=== PATIENT | male | born 1970 | race Caucasian/White ===

== ENCOUNTER 2017-12-12 11:05 | Outpatient (CLI) | payer OTHER ==
--- NOTE | 2017-12-12 11:49 | XRAY Report ---
TWO VIEW CHEST: 12/12/2017 CLINICAL INDICATION: Cough, rhonchi, fever. FINDINGS: Frontal and lateral views of the chest demonstrate a normal cardiac silhouette. The lungs are clear. No effusion or pneumothorax is present. IMPRESSION: NORMAL CHEST. TD: 12/12/2017 11:48
== END 2017-12-12 11:06 | disposition home or self-care (01) ==
LOC: DI.S 11:05
PROVIDERS: ATTEND Internal Medicine
DX: R05 Cough (principal)
CPT/HCPCS: 71046

== ENCOUNTER 2018-06-22 11:28 | Outpatient (CLI) | payer OTHER ==
[2018-06-22 18:09] LABS: MEAN CORPUSCULAR HEMOGLOBIN 29.7 pg (27.0-31.0); MEAN CORPUSCULAR HGB CONC 33.5 g/dL (32.0-36.0); MEAN CORPUSCULAR VOLUME 88.7 fL (80.0-94.0); MEAN PLATELET VOLUME 9.8 fL (7.4-11.4); RED BLOOD COUNT 5.37 10^6/uL (4.70-6.10); RED CELL DISTRIBUTION WIDTH 13.2 % (12.0-15.0); WHITE BLOOD COUNT 3.7 x10^3/uL (4.8-10.8)
== END 2018-06-22 11:29 | disposition home or self-care (01) ==
LOC: LAB.F 11:28
PROVIDERS: ATTEND Internal Medicine
DX: N40.1 Benign prostatic hyperplasia with lower urinary tract symptoms (principal); E03.9 Hypothyroidism, unspecified; D72.819 Decreased white blood cell count, unspecified
CPT/HCPCS: 36415; 84153; 84443; 85027

== ENCOUNTER 2018-10-15 08:00 | Outpatient (CLI) | payer BC, OTHER | END 2018-10-15 23:59 | disposition home or self-care (01) | LOC: LAB.R 08:00 | PROVIDERS: ATTEND Physician Assistant Medical | DX: L01.00 Impetigo, unspecified (principal) | CPT/HCPCS: 87070 ==

== ENCOUNTER 2020-08-12 10:22 | Outpatient (CLI) | payer BC | END 2020-08-12 10:23 | disposition home or self-care (01) | LOC: LAB 10:22 | PROVIDERS: ATTEND Internal Medicine Endocrinology, Diabetes & Metabolism | DX: C73 Malignant neoplasm of thyroid gland (principal); E89.0 Postprocedural hypothyroidism | CPT/HCPCS: 36415; 84443; 86800 ==

== ENCOUNTER 2020-08-25 10:49 | Outpatient (CLI) | payer BC | END 2020-08-25 10:50 | disposition home or self-care (01) | LOC: LAB 10:49 | PROVIDERS: ATTEND Internal Medicine Endocrinology, Diabetes & Metabolism | DX: E89.0 Postprocedural hypothyroidism (principal) | CPT/HCPCS: 36415; 84432; 84443; 86800 ==

== ENCOUNTER 2020-12-22 07:33 | Outpatient (CLI) | payer BC ==
[2020-12-22 15:43] LABS: CHOL/HDL RATIO 4.5 (<5.0); CHOLESTEROL 197 mg/dL; HDL CHOLESTEROL 44 mg/dL; LDL CHOLESTEROL,CALCULATED 129 mg/dL; LDL/HDL RATIO 2.9 (<3.6); TRIGLYCERIDES 121 mg/dL; VLDL CHOLESTEROL 24 mg/dL
== END 2020-12-22 07:34 | disposition home or self-care (01) ==
LOC: LAB.S 07:33
DX: R39.9 Unspecified symptoms and signs involving the genitourinary system (principal); Z13.220 Encounter for screening for lipoid disorders; Z11.59 Encounter for screening for other viral diseases
CPT/HCPCS: 36415; 80061; 83721; 84153; 87522

== ENCOUNTER 2020-12-25 08:10 | Outpatient (CLI) | payer BC ==
[2020-12-25 15:27] LABS: BASOPHILS % (AUTO) 0.5 %; EOSINOPHILS # (AUTO) 0.1 10^3/uL (0.0-0.7); EOSINOPHILS % (AUTO) 1.4 %; HCT - HEMATOCRIT 49.5 % (42.0-52.0); HGB - HEMOGLOBIN 16.2 g/dL (14.0-18.0); LYMPHOCYTES # (AUTO) 1.8 10^3/uL (1.5-3.5); LYMPHOCYTES % (AUTO) 39.8 %; MEAN CORPUSCULAR HEMOGLOBIN 29.3 pg (27.0-31.0); MEAN CORPUSCULAR HGB CONC 32.7 g/dL (32.0-36.0); MEAN CORPUSCULAR VOLUME 89.5 fL (80.0-94.0); MEAN PLATELET VOLUME 11.2 fL (7.4-11.4); MONOCYTES # (AUTO) 0.3 10^3/uL (0.0-1.0); MONOCYTES % (AUTO) 6.6 %; NEUTROPHILS # (AUTO) 2.3 10^3/uL (1.5-6.6); NEUTROPHILS % (AUTO) 51.5 %; PLT - PLATELET COUNT 153 10^3/uL (130-450); RED BLOOD COUNT 5.53 10^6/uL (4.70-6.10); RED CELL DISTRIBUTION WIDTH 12.6 % (12.0-15.0); WHITE BLOOD COUNT 4.4 x10^3/uL (4.8-10.8)
[2020-12-25 15:59] LABS: CALCIUM 9.5 mg/dL (8.5-10.3)
== END 2020-12-25 08:11 | disposition home or self-care (01) ==
LOC: LAB.S 08:10
PROVIDERS: ATTEND Surgery
DX: Z01.812 Encounter for preprocedural laboratory examination (principal); K40.90 Unilateral inguinal hernia, without obstruction or gangrene, not specified as recurrent
CPT/HCPCS: 36415; 80048; 85025

== ENCOUNTER 2022-08-18 08:00 | Outpatient (CLI) | payer BC, OTHER ==
--- NOTE | 2022-08-18 11:45 | XRAY Report ---
PROCEDURE: Wrist 4 View LT INDICATIONS: LEFT WRIST INJURY TECHNIQUE: 4 views of the wrist were acquired. COMPARISON: None FINDINGS: Bones: No fractures or dislocations. 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 No suspicious bony lesions. Scaphoid view: Scaphoid is grossly intact. Soft tissues: No suspicious soft tissue calcifications. IMPRESSION: No acute wrist fracture or dislocation. Mild wrist joint osteoarthritis. Reviewed by: Jacob Vazquez MD on 08/18/2022 11:44 AM [facility] Approved by: Jacob Vazquez MD on 08/18/2022 11:44 AM [facility] Station ID: [id number]
== END 2022-08-18 08:01 | disposition home or self-care (01) ==
LOC: DI.S 08:00
PROVIDERS: ATTEND Physician Assistant Medical
DX: S63.592A Other specified sprain of left wrist, initial encounter (principal); M19.032 Primary osteoarthritis, left wrist